=== PATIENT | male | born 1965 | race Caucasian/White ===

== ENCOUNTER 2020-06-15 07:46 | Outpatient (REF) | payer OTHER, SELFPAY ==
[2020-06-15 11:12] LABS: MANUAL DIFF FLAG NO
[2020-06-15 11:15] LABS: Basophils Percent Auto 0.3 % (0-2); Eosinophils Absolute Auto 0.2 X10*3/uL (0.0-0.4); Eosinophils Percent Auto 2.6 % (0-4); Hematocrit 45.1 % (42-52); Hemoglobin 15.3 g/dl (14.0-18.0); Imm Gran Abs Auto 0.02 X10*3/uL (0.00-0.03); Imm Gran Pct Auto 0.3 % (0.0-0.4); Lymphocytes Absolute Auto 1.7 X10*3/uL (1.2-4.9); Lymphocytes Percent Auto 24.7 % (20-40); Mean Corpuscular HGB Conc 33.9 g/dl (31.0-36.0); Mean Corpuscular Hemoglobin 30.9 pg (27.0-33.0); Mean Corpuscular Volume 91.1 fL (80-98); Mean Platelet Volume 10.9 fL (9.4-12.4); Monocytes Absolute Auto 0.6 X10*3/uL (0.1-1.2); Monocytes Percent Auto 9.3 % (2-11); Neutrophils Absolute Auto 4.3 X10*3/uL (2.0-8.3); Neutrophils Percent Auto 62.8 % (45-73); Platelet Count 305 X10*3/uL (160-400); Red Blood Count 4.95 X10*6/uL (4.60-5.80); Red Cell Distribution Width 12.9 % (11.0-16.0); White Blood Count 6.9 X10*3/uL (4.8-10.8)
[2020-06-15 11:38] LABS: Alanine Aminotransferase 21 U/L (0-40); Alkaline Phosphatase 69 U/L (39-117); Anion Gap 14 (12-20); Aspartate Amino Transferase 12 U/L (5-37); Bilirubin Total 0.4 mg/dL (0.0-1.0); Blood Urea Nitrogen 18 mg/dL (9-16); Calcium 8.6 mg/dL (8.4-10.2); Carbon Dioxide 25 mmol/L (22-29); Chloride 105 mmol/L (96-108); Cholesterol 238 mg/dL; Estimated Glomerular Filt Rate > 60; Glucose Fasting 90 mg/dL (60-99); HDL Cholesterol 50 mg/dL; LDL Cholesterol Calculated 158 mg/dl; Potassium 4.3 mmol/L (3.3-5.1); Sodium 140 mmol/L (135-145); Total Protein 6.5 g/dL (6.5-8.0); Triglycerides 150 mg/dL
[2020-06-15 11:59] LABS: ~HepC Num1 0.08 S/CO (0.00-0.79); ~Hepatitis C Antibody Nonreactive (Nonreactive)
[2020-06-15 12:00] LABS: Prostate Specific Antigen 0.74 ng/mL (<0.05-4.0); Thyroid Stimulating Hormone 1.62 uIU/mL (0.32-4.0); Vitamin D 25-OH Total 38.1 ng/mL (>30)
== END 2020-06-15 07:47 | disposition home or self-care (01) ==
LOC: HO.MANLDS 07:46
PROVIDERS: PCP Internal Medicine; Visit Provider Internal Medicine
DX: Z00.00 Encounter for general adult medical examination without abnormal findings (principal); Z12.5 Encounter for screening for malignant neoplasm of prostate
CPT/HCPCS: 36415; 80053; 80061; 82306; 84153; 84443; 85025; 86803

== ENCOUNTER 2022-07-04 07:40 | Outpatient (REF) | payer OTHER, SELFPAY ==
[2022-07-04 11:14] LABS: MANUAL DIFF FLAG NO
[2022-07-04 12:06] LABS: Basophils Percent Auto 0.4 % (0-2); Eosinophils Absolute Auto 0.3 X10*3/uL (0.0-0.4); Eosinophils Percent Auto 3.1 % (0-4); Hematocrit 46.6 % (42.0-52.0); Hemoglobin 15.5 g/dl (14.0-18.0); Imm Gran Abs Auto 0.02 X10*3/uL (0.00-0.03); Imm Gran Pct Auto 0.2 % (0.0-0.4); Lymphocytes Percent Auto 23.9 % (20-40); Mean Corpuscular HGB Conc 33.3 g/dl (31.0-36.0); Mean Corpuscular Hemoglobin 30.1 pg (27.0-33.0); Mean Corpuscular Volume 90.5 fL (80.0-98.0); Monocytes Percent Auto 12.1 % (2-11); Neutrophils Percent Auto 60.3 % (45-73); Platelet Count 298 X10*3/uL (160-400); Red Blood Count 5.15 X10*6/uL (4.60-5.80); White Blood Count 8.3 X10*3/uL (4.8-10.8)
[2022-07-04 12:40] LABS: Alanine Aminotransferase 32 U/L (0-40); Albumin Level 4.1 g/dL (3.5-5.0); Alkaline Phosphatase 74 U/L (39-117); Anion Gap 15 (12-20); Aspartate Amino Transferase 15 U/L (5-37); Bilirubin Total 0.6 mg/dL (0.0-1.0); Blood Urea Nitrogen 19 mg/dL (9-16); Calcium 9.1 mg/dL (8.4-10.2); Carbon Dioxide 28 mmol/L (22-29); Chloride 103 mmol/L (96-108); Cholesterol 217 mg/dL; Estimated Glomerular Filt Rate > 60; Glucose Random 90 mg/dL (60-115); HDL Cholesterol 42 mg/dL; LDL Cholesterol Calculated 138 mg/dl; Potassium 4.6 mmol/L (3.3-5.1); Sodium 141 mmol/L (135-145); Total Protein 6.4 g/dL (6.5-8.0); Triglycerides 189 mg/dL
[2022-07-04 12:41] LABS: Prostate Specific Antigen 0.65 ng/mL (<0.05-4.0); Thyroid Stimulating Hormone 1.97 uIU/mL (0.32-4.0); Vitamin D 25-OH Total 44.2 ng/mL (>30)
== END 2022-07-04 07:41 | disposition home or self-care (01) ==
LOC: HO.MANLDS 07:40
PROVIDERS: Visit Provider Internal Medicine
DX: Z00.00 Encounter for general adult medical examination without abnormal findings (principal); Z12.5 Encounter for screening for malignant neoplasm of prostate; E78.00 Pure hypercholesterolemia, unspecified; R53.83 Other fatigue
CPT/HCPCS: 36415; 80053; 80061; 82306; 84153; 84443; 85025

== ENCOUNTER 2024-06-21 16:23 | Outpatient (REF) | payer OTHER, SELFPAY ==
--- OUTSIDE RECORDS SUMMARY | 2024-06-21 18:50 | XMS_ITS | Continuity of Care Document ---
Author Organization [place] - [facility], [facility] Address [address] [place] [address] [place] [address] Assessment No assessment recorded. Plan of Treatment Reminders Order Date Submit Date Provider Last Modified By Organization Details Last Modified Time Details Appointments FOLLOW UP 15 2024 04:00P M DR MENDOZA Not available Not available Not available Lab testoste jaquelin, total, serum 2024 025 [facility], [address] [place] [address], [place], [address], 06/21/2024 16:40:33 Referral None recorded . Procedures None recorded . Surgeries None recorded . Imaging XR, chest, 2 view 2024 025 [facility] Central Scheduling (Not Breast), [address] [place] [address], [id number], 06/21/2024 17:57:15 Medication Orders None recorded . Patient TargetsNo targets recorded. Patient Instructions Encounter Date Encounter Id Patient Instructions Last Modified By Organization Details Last Modified Time 06/21/2024 [id number] cough: care instructions Not available 06/21/2024 16:20:32 methacholine challenge* ATHENAFAX Not available 06/21/2024 16:21:41 complete PFT w/ post bronchodilator spirometry* ATHENAFAX Not available 06/21/2024 16:21:39 pulse oximetry* Not available 06/21/2024 16:20:32 Reason for Referral None Reported. Results Created Date Observation Date Name Description Value Unit Range Abnormal Flag Note LastModifiedBy Organization Detail LastModifiedTime 06/22/19 25 06/21/2024 XR, chest , 2 view No observ ation record ed. [facility] [address], [place], [address], 06/21/2024 17:57:15 Result Notes None recorded. Problems Name Problem SNOMED Code Status Onset Date Resolution Date Notes Provider Name and Address Organization Details Recorded Time Sciatica 93309363 Active 2020 Not Available [facility] 4 03:25:31 Adult health examinati on Active 2020 Not Available [facility] 4 03:25:31 Acute low back pain 153695493 Active 2021 Not Available [facility] 4 03:25:31 Cervical radiculop athy 77208137 Active 2021 Not Available [facility] 4 03:25:31 Degenerat ion of cervical intervert ebral disc 18823978 Active 2022 Not Available [facility] 4 03:25:31 Cough 49430190 Active 2022 Not Available [facility] 4 03:25:31 Chronic cough 68807485 Active 2022 Not Available [facility] 4 03:25:31 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 Active 2022 Not Available [facility] 4 03:25:31 Reactive lymphaden opathy 509765378 Active 2022 Not Available [facility] 4 03:25:31 Chronic obstructi ve pulmonary disease 83341021 Active 2022 Not Available [facility] 4 03:25:31 Chronic sinusitis 05358959 Active 2023 LUCÍA DOAN [address] [place], [address], [facility] 4 12:07:23 Seasonal allergic rhinitis 052998879 Active 2023 LUCÍA DOAN [address] [place], [address], [facility] 4 12:09:14 Sleep apnea 99573670 Active 2023 LUCÍA DOAN [address] [place] [address], [phone], [facility] 4 12:13:37 Diastasis recti 39910013 Active 2023 LUCÍA DOAN [address] [place] [address], [phone], [facility] 4 12:22:47 Low back pain 256608001 Active 2023 LUCÍA DOAN [address] [place] [address], [phone], [facility] 4 12:24:52 Deviated nasal septum 824457970 Active 2023 LUCÍA DOAN [address] [place] [address], [phone], [facility] 4 12:33:11 Malaise and fatigue 937585695 Active 2023 Timothy Mendoza DO [address] [place] [address], [address], [facility] 4 10:52:13 Multiple joint pain 57373330 Active 2023 Timothy Mendoza DO [address] [place] [address], [address], [facility] 4 10:52:49 Insomnia 091626987 Active 2023 Timothy Mendoza DO [address] [place] [address], [phone], [facility] 4 10:56:02 Fatigue 38200610 Active 2024 Timothy Mendoza DO [address] [place] [address], [phone], [facility] 5 16:35:14 Notes:allergies ( immune Inj ections) Some problems listed in Documents: #[id number], #[id number] could not be added to this patient's chart. Please review these documents and add these problems to the patient's chart manually as needed. Problem Notes None recorded. Medical Equipment None Reported. Allergies No known drug allergies Medications Name Sig Start Date Stop Date Status Note LastModified by Organization Details LastModified Time prednison e 10 mg tablet 5 tabs x 3 days4 tabs x 3 days 3 tabs x 3 days2 tabs x 3 days1 tab x 3 days 03/22 completed Not Available Not Available Not Available trazodone 50 mg tablet Take 1 tablet every day by oral route for 30 days. active Not Available Not Available No t Available azithromy jamshid 250 mg tablet TAKE 2 TABLETS (500 MG) BY ORAL ROUTE ONCE DAILY FOR 1 DAY THEN 1 TABLET (250 MG) BY ORAL ROUTE ONCE DAILY FOR 4 DAYS 06/21 completed Not Available Not Available Not Available benzonata te 200 mg capsule TAKE 1 CAPSULE BY MOUTH THREE TIMES DAILY FOR 7 DAYS NEEDED active Not Available Not Available No t Available tramadol 50 mg tablet TAKE 1 TABLET BY MOUTH EVERY 6 HOURS FOR 7 DAYS NEEDED 03/22 completed Not Available Not Available Not Available baclofen 20 mg tablet TAKE 1 TABLET BY MOUTH THREE TIMES DAILY FOR 14 DAYS NEEDED 03/22 completed Not Available Not Available Not Available oseltamiv ir 75 mg capsule TAKE 1 CAPSULE BY MOUTH TWICE DAILY FOR 5 DAYS 06/21 completed Not Available Not Available Not Available methylpre dnisolone 4 mg tablets in a dose pack FOLLOW PACKAGE DIRECTIO NS 06/21 completed Not Available Not Available Not Available albuterol sulfate HFA 90 mcg/actua tion aerosol inhaler INHALE 2 PUFFS BY MOUTH EVERY 4 HOURS active Not Available Not Available No t Available doxycycli ne hyclate 100 mg tablet Take 1 tablet twice a day by oral route for 10 days. 03/25 completed Not Available Not Available Not Available Flovent HFA 110 mcg/actua tion aerosol inhaler INHALE 1 PUFF BY MOUTH TWICE DAILY 03/22 completed Not Available Not Available Not Available Vitamin D3 1000 IU daily active OTC Not Available Not Available No t Available Multivita min 50 Plus daily active OTC Not Available Not Available Not Available CoQ-10 200 mg daily active OTC Not Available Not Available No t Available krill oil 500 mg daily active OTC Not Available Not Available No t Available Ragwitek 12 Amb a 1 unit sublingua l tablet DISSOLVE 1 TABLET UNDER THE TONGUE DAILY active Not Available Not Available No t Available Ragwitek 03/25 completed PRN allergie s Not Available Not Available Not Available Trelegy Ellipta 100 mcg-62.5 mcg-25 mcg powder for inhalatio n Inhale 1 puff every day by inhalati on route as directed for 30 days. 03/22 completed Not Available Not Available Not Available Vitals Date Recorded Body height Body mass index (BMI) Body weight Heart rate Oxygen saturation Oxygen saturation in Arterial blood by Pulse oximetry Systolic blood pressure Diastolic blood pressure Provider Name and Address Organization Details Last Updated DateTime 5 167.64 cm 32.1 kg/m2 45308.8 g 86 /min 95 % 95 % 118 mm[Hg] 76 mm[Hg] Veronique Ramírez [facility] 5 15:59:05 Social History Question Answer Notes LastModified by Organizat ion Details LastModified Time Tobacco Smoking Status Never Smoker Kiertsen coleman [facility] 05/18/2020 10:30:22 What Was The Date Of Your Most Recent Tobacco Screening? 06/21/2024 [email or web address] Information not available 06/21/2024 Do You Or Have You Ever Used Any Other Forms Of Tobacco Or Nicotine? No [email or web address] Information not available 02/16/2023 Sex: Unknown Functional Status None recorded. Mental Status None recorded. Family History Nothing Reported. Medical History No medical history recorded. Immunizations Vaccine Type Date Status Note Provider Nam e and Address Organization Details Recorded Time COVID-19, mRNA, LNP-S, PF, 100 mcg/0.5mL dose or 50 mcg/0.25mL dose 1 completed Not Available [facility] 03/25/2023 03:25:31 COVID-19, mRNA, LNP-S, PF, 100 mcg/0.5mL dose or 50 mcg/0.25mL dose 1 completed Not Available [facility] 03/25/2023 03:25:31 COVID-19, mRNA, LNP-S, PF, 100 mcg/0.5mL dose or 50 mcg/0.25mL dose 1 completed Not Available [facility] 03/25/2023 03:25:31 Influenza, split virus, quadrivalent, preservative 1 completed Not Available [facility] 03/25/2023 03:25:31 zoster recombinant 2 completed Not Available [facility] 03/25/2023 03:25:31 influenza, unspecified formulation 2 completed Not Available [facility] 03/25/2023 03:25:31 Influenza, split virus, quadrivalent, preservative 0 completed Not Available [facility] 03/25/2023 03:25:31 Past Encounters Encounter ID Performer Location Encounter Start Date Encounter Closed Date Diagnosis/Indication Diagnosis SNOMED-CT Code Diagnosis ICD10 Code Diagnosis Note [id number] DO [facility] [address] [facility] [place] [address] 06/21/2024 15:50:39 06/21/2024 16:31:11 Chronic obstructive pulmonary disease 92973953 J44.9 Fatigue 62065807 R53.83 we will need to have him get another set of lab including testostero ne Cough 48171370 R05.9 Health Concerns Section Related Observation LastModified by Organization Detai ls LastModified Time None Recorded Concern Status LastModified by Organization Details LastModified Time None Recorded Payers Encounter Date Sequence Insurance Name Policy Number Policy Johnson Covered Member ID Johnson Member ID Guarantor Name 06/21/[address] [place] [address] [id number] Fletcher Reinoso [id number] Fletcher Reinoso Notes Date Note Type Note Provider Name a nd Address Organization Details Recorded Time 5 text/html Care Management - Chronic Obstructive Pulmonary Disease (COPD)Reported bypatient.Severity:s ymptoms are improving; does not interfere with daily activities Associated Symptoms:no chest tightness; no shortness of breath; no wheezing; not constantly clearing the throat; no blueness of the lips; no fatigue; no respiratory infectionsCare Management - GeneralReported bypatient.Context:no t current smoker Lifestyle Changes:motivated to continue lifestyle changes; current smoker wishing to stop; exercises regularly Medication Therapy:compliant with follow-up visits; compliance with oral medication is good; understands effect of concurrent medications; understands potential side effects; understands missed doses Nutrition/Dietary Compliance:ready for diet changes; eats mostly healthy diet; limiting salt intake; sufficient intake of fruits/vegetables; low fat diet; limiting alcohol intake; understands role of diet as primary therapy; hypoglycemic awarenessFatigueRepo rted bypatient.Severity:n ormal sleep patterns; normal exercise habits; normal activity; improving Timing:better Context:symptoms improve when at home versus on the job Modifying Factors:no new stressors in life; taking vitamins Associated Symptoms:no depression; no alcohol consumption; no anxiety; no sleep disturbances; normal sleep; no snoring; no apnea; no weight loss; no weight gain; no chest pain; no joint pain; no rash; palpitations; no SOB; no dizziness; no sore throat; no joint pain; no headache; no exertional fatigue; no tender, swollen glands; no fever relates that he came back from [facility] had a day of chills and has had a cough for the past month Timothy Mendoza, DO [address] [place], [address], [facility] 06/21/2024 16:23:16
--- OUTSIDE RECORDS SUMMARY | 2024-06-21 18:50 | XMS_ITS | Data Portability ---
Author Organization [facility], Home Service Address [address] [place] [address] Assessment Encounter Date Assessment Date Assessment LastModified by Organization Details LastModified Time 08/20/2022 08/20/2022 The patient denies little pleasure in activities they find enjoyable, feeling depressed, difficulties sleeping, feeling tired or having little energy, change in appetite, feeling guilty, overwhelmed or unmotivated. The patient denies suicidal ideation, thoughts of hurting themselves or others. Their mood is appropriate, they show good judgement and clear understanding of the conversation. They are orientated to time, place and person. They are not expressing any concerning thoughts or actions that would need further investigation and treatment for mental health. The patient denies little pleasure in activities they find enjoyable, feeling depressed, difficulties sleeping, feeling tired or having little energy, change in appetite, feeling guilty, overwhelmed or unmotivated. The patient denies suicidal ideation, thoughts of hurting themselves or others. Their mood is appropriate, they show good judgement and clear understanding of the conversation. They are orientated to time, place and person. They are not expressing any concerning thoughts or actions that would need further investigation and treatment for mental health. [email or web address] Not available 08/20/2022 11:34:22 Plan of Treatment Reminders Order Date Submit Date Provider Last Modified By Organization Details Last Modified Time Details Appointments FOLLOW UP 15 2024 04:00P M DR MENDOZA Not available Not available Not available Lab testoster one, total, serum 2024 025 [facility], [address] [place] [address], [place], [address], 06/21/2024 16:40:33 ESR (erythroc yte sedimenta tion rate), blood 2023 024 [facility], [address] [place] [address], [address], 03/22/2024 10:58:58 TSH, serum or plasma 2023 024 [facility], [address] [place] [address], [address], 04/22/2024 14:43:43 CBC w/ auto diff 2023 [facility], [address] [place] [address], [address], 04/22/2024 14:43:43 CMP, serum or plasma 2023 [facility], [address] [place] [address], [address], 04/22/2024 14:43:43 vitamin B12 + folate, serum or blood 2023 [facility], [address] [place] [address], [address], 03/22/2024 10:53:47 TSH + free T4, serum 2023 024 [facility], [address] [place] [address], [address], 03/22/2024 10:53:46 testoster one, total, serum 2023 [facility], [address] [place] [address], [address], 04/22/2024 14:43:43 vitamin D, 25-hydrox y, total, serum 2023 [facility], [address] [place] [address], [address], 03/22/2024 10:53:47 HbA1c (hemoglob in A1c), blood 2023 024 [facility], [address] [place] [address], [address], 04/22/2024 15:49:56 lipid panel, blood 2023 024 [facility], [address] [place] [address], [address], 04/22/2024 14:59:17 PSA, serum or plasma 2023 024 [facility], [address] [place] [address], [address], 04/22/2024 15:08:32 CBC w/ auto diff 2022 023 [facility], [address] [place] [address], [address], 02/17/2023 17:16:16 ESR (erythroc yte sedimenta tion rate), blood 2022 023 [facility], [address] [place] [address], [address], 02/17/2023 17:16:15 C reactive protein, QN, serum or plasma 2022 023 [facility], [address] [place] [address], [address], 02/17/2023 17:16:15 CMP, serum or plasma 2022 023 [facility], [address] [place] [address], [address], 02/17/2023 17:16:15 Referral sleep medicine referral 2023 024 [email or web address] [facility], [address] [place] [address], [address], 09/15/2023 07:51:29 physical therapist referral 2023 024 [facility], [address] [facility], [facility] [address], [address], 09/15/2023 09:14:48 Procedures None recorded. Surgeries None recorded. Imaging XR, chest, 2 view 2024 025 [facility] Central Scheduling (Not Breast), [address] [place], [address], 06/21/2024 17:57:15 XR, nasal bones, 3 or more view 2023 024 [facility], [address], [place], [address], 03/29/2024 08:37:15 XR, sinuses, paranasal , 3 or more view 2023 024 [facility], [address], [address], 09/21/2023 08:19:54 exercise stress test 2022 023 [email or web address] Not available 03/02/2023 09:28:17 CT, chest, w/o contrast 2022 023 [facility], [address] [place], [address], 02/17/2023 09:27:48 XR, chest, 2 view 2022 023 [facility], [address] [place], [address], 02/16/2023 14:27:36 CT, chest, w/o contrast 2022 023 [email or web address] Not available 08/22/2022 08:36:39 Medication Orders trazodone 50 mg tablet 2023 024 [id number], [address] [place], [place], [id number], 03/22/2024 10:56:42 tramadol 50 mg tablet [address] [facility]64595, [address] [place], [place], [id number], 03/22/2024 10:20:50 baclofen 20 mg tablet 2023 024 [facility]64697, [address] [place], [place], [id number], 03/22/2024 10:21:26 Ragwitek 12 Amb a 1 unit sublingua l tablet 2023 024 [facility] #77788, [address] [place], [place], [id number], 09/14/2023 12:10:50 prednison e 10 mg tablet [address] [facility]62831, [address] [place], [place], [id number], 03/22/2024 10:20:45 albuterol sulfate HFA 90 mcg/actua tion aerosol inhaler 2022 023 [facility] #22222, [address] [place], [place], [id number], 02/16/2023 11:32:23 Flovent HFA 110 mcg/actua tion aerosol inhaler [address] [facility] #31574, [address] [place], [place], [id number], 03/22/2024 10:21:23 Patient TargetsNo targets recorded. Patient Instructions Encounter Date Encounter Id Patient Instructions Last Modified By Organization Details Last Modified Time 03/22/2024 [id number] nasal septum repair: before your surgery Not available 03/22/2024 10:57:53 insomnia: care instructions Not available 03/22/2024 10:56:31 fatigue: care instructions Not available 03/22/2024 10:52:22 06/21/2024 [id number] cough: care instructions Not available 06/21/2024 16:20:32 methacholine challenge* ATHENAFAX Not available 06/21/2024 16:21:41 complete PFT w/ post bronchodilator spirometry* ATHENAFAX Not available 06/21/2024 16:21:39 pulse oximetry* Not available 06/21/2024 16:20:32 Reason for Referral Sleep Medicine Referral for Sleep apnea needs in patient sleep study Referring Physician: Sowmya Natarajan, Internal Medicine, Encounter Date: 09/14/2023 Physical Therapist Referral for Diastasis recti diastasis recti with low back pain Referring Physician: Sowmya Natarajan Internal [facility], Encounter Date: 09/14/2023 Results Created Date Observation Date Name Description Value Unit Range Abnormal Flag Note LastModifiedBy Organization Detail LastModifiedTime 08/16/19 23 08/15/2022 XR, chest , 2 view No observ ation record ed. [facility] [address] [facility] [address], [place], [address], 08/15/2022 16:01:41 02/17/20 23 02/16/2023 XR, chest , 2 view No observ ation record ed. [email or web address] [place] [address] [facility] [address] [place], [address], 02/16/2023 15:04:23 02/26/20 23 02/25/2023 CT, chest , w/o contr ast No observ ation record ed. [facility] [address] [place], [address], 02/27/2023 10:18:33 03/26/19 24 03/26/2023 exerc ise stres s test No observ ation record ed. [email or web address] [place] [address] [facility] [address], [place], [address], 03/27/2023 12:00:04 06/22/19 25 06/21/2024 XR, chest , 2 view No observ ation record ed. [facility] [address] [place], [address], 06/21/2024 17:57:15 Result Notes None recorded. Problems Name Problem SNOMED Code Status Onset Date Resolution Date Notes Provider Name and Address Organization Details Recorded Time Sciatica 20860990 Active 2020 Not Available [facility] 4 03:25:31 Adult health examinati on Active 2020 Not Available [facility] 4 03:25:31 Acute low back pain 839860628 Active 2021 Not Available [facility] 4 03:25:31 Cervical radiculop athy 90085196 Active 2021 Not Available [facility] 4 03:25:31 Degenerat ion of cervical intervert ebral disc 34934331 Active 2022 Not Available [facility] 4 03:25:31 Cough 68559079 Active 2022 Not Available [facility] 4 03:25:31 Chronic cough 45422596 Active 2022 Not Available [facility] 4 03:25:31 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 1325664476 Active 2022 Not Available [facility] 4 03:25:31 Reactive lymphaden opathy 569041314 Active 2022 Not Available [facility] 4 03:25:31 Chronic obstructi ve pulmonary disease 94851786 Active 2022 Not Available [facility] 4 03:25:31 Chronic sinusitis 87929073 Active 2023 LUCÍA DOAN [address] [place], [address], [facility] 4 12:07:23 Seasonal allergic rhinitis 203411657 Active 2023 LUCÍA DOAN [address] [place] [address], [address], [facility] 4 12:09:14 Sleep apnea 02833524 Active 2023 LUCÍA DOAN [address] [place], [address], [facility] 4 12:13:37 Diastasis recti 40138562 Active 2023 LUCÍA DOAN [address] [place] [address], [address], [facility] 4 12:22:47 Low back pain 525801885 Active 2023 LUCÍA DOAN [address] [place] [address], [address], [facility] 4 12:24:52 Deviated nasal septum 448967101 Active 2023 LUCÍA DOAN [address] [place] [address], [address], [facility] 4 12:33:11 Malaise and fatigue 350812109 Active 2023 Timothy Mendoza DO [address] [place] [address], [address], [facility] 4 10:52:13 Multiple joint pain 61512238 Active 2023 Timothy Mendoza DO [address] [place] [address], [address], [facility] 4 10:52:49 Insomnia 280710535 Active 2023 Timothy Mendoza DO [address] [place] [address], [address], [facility] 4 10:56:02 Fatigue 41639052 Active 2024 Timothy Mendoza DO [address] [place] [address], [address], [facility] 5 16:35:14 Notes:allergies ( immune Inj ections) Some problems listed in Documents: #[id number], #[id number] could not be added to this patient's chart. Please review these documents and add these problems to the patient's chart manually as needed. Problem Notes None recorded. Procedures Surgical History None recorded. Imaging Results Imaging Date Name Status LastModified by Organiz ation Details LastModified Time 08/15/2022 XR, chest, 2 view completed [facility] [address] [facility] [address], [place], [address], 08/15/2022 16:01:41 02/16/2023 XR, chest, [address] [facility] [address] [place], [address], 02/16/2023 15:04:23 02/25/2023 CT, chest, w/o contrast completed [facility] [address], [address], 02/27/2023 10:18:33 03/26/2023 exercise stress test completed [address] [facility] [address] [place], [address], 03/27/2023 12:00:04 06/21/2024 XR, chest, 2 view active [facility] [address] [place], [address], 06/21/2024 17:57:15 Procedure Notes None recorded. Medical Equipment None Reported. [...] and Address Organization Details Last Updated DateTime 3 170.18 cm 30.9 kg/m2 01425.7 g 80 /min 97 % 97 % 122 mm[Hg] 78 mm[Hg] Ethel Chopra [facility] 3 11:04:11 Date Recorded Body height Body mass index (BMI) Body weight Heart rate Oxygen saturation Oxygen saturation in Arterial blood by Pulse oximetry Systolic blood pressure Diastolic blood pressure Provider Name and Address Organization Details Last Updated DateTime 4 170.18 cm 30.4 kg/m2 02804.9 2 g 75 /min 97 % 97 % 108 mm[Hg] 60 mm[Hg] Ethel Chopra [facility] 4 11:50:17 Date Recorded Body height Body mass index (BMI) Body weight Heart rate Oxygen saturation Oxygen saturation in Arterial blood by Pulse oximetry Systolic blood pressure Diastolic blood pressure Provider Name and Address Organization Details Last Updated DateTime 4 167.64 cm 32.8 kg/m2 89335.2 5 g 68 /min 99 % 99 % 114 mm[Hg] 72 mm[Hg] Ben Hooker [facility] 4 10:23:20 Date Recorded Body height Body mass index (BMI) Body weight Heart rate Oxygen saturation Oxygen saturation in Arterial blood by Pulse oximetry Systolic blood pressure Diastolic blood pressure Provider Name and Address Organization Details Last Updated DateTime 5 167.64 cm 32.1 kg/m2 19069.8 g 86 /min 95 % 95 % 118 mm[Hg] 76 mm[Hg] Veronique Ramírez [facility] 5 15:59:05 Social History Question Answer Notes LastModified by Organizat ion Details LastModified Time Tobacco Smoking Status Never Smoker Kiersten coleman [facility] 05/18/2020 10:30:22 What Was The Date Of Your Most Recent Tobacco Screening? 06/21/2024 [email or web address] Information not available 06/21/2024 Do You Or Have You Ever Used Any Other Forms Of Tobacco Or Nicotine? No [email or web address] Information not available 02/16/2023 Sex: Unknown Functional Status None recorded. Mental Status None recorded. Family History Nothing Reported. Medical History No medical history recorded. Immunizations Vaccine Type Date Status Note Provider Nam e and Address Organization Details Recorded Time COVID-19, mRNA, LNP-S, PF, 100 mcg/0.5mL dose or 50 mcg/0.25mL dose 1 completed Not Available [facility] 03/25/2023 03:25:31 COVID-19, mRNA, LNP-S, PF, 100 mcg/0.5mL dose or 50 mcg/0.25mL dose 1 completed Not Available [facility] 03/25/2023 03:25:31 COVID-19, mRNA, LNP-S, PF, 100 mcg/0.5mL dose or 50 mcg/0.25mL dose 1 completed Not Available [facility] 03/25/2023 03:25:31 Influenza, split virus, quadrivalent, preservative 1 completed Not Available [facility] 03/25/2023 03:25:31 zoster recombinant 2 completed Not Available [facility] 03/25/2023 03:25:31 influenza, unspecified formulation 2 completed Not Available [facility] 03/25/2023 03:25:31 Influenza, split virus, quadrivalent, preservative 0 completed Not Available [facility] 03/25/2023 03:25:31 Past Encounters Encounter ID Performer Location Encounter Start Date Encounter Closed Date Diagnosis/Indication Diagnosis SNOMED-CT Code Diagnosis ICD10 Code Diagnosis Note [id number] LUCÍA DOAN [facility] [address] [facility], [place] [address] 05/18/2020 10:01:51 05/18/2020 11:16:28 Acute low back pain 530168563 M54.5 will start work up on low back patient has had work up prior but with new symptoms and numbness, he will need new imaging if he decides to go see a specialist [id number] Timothy Mendoza DO [facility] [address] [facility], [place] [address] 06/04/2020 10:59:37 06/04/2020 12:05:32 Active or passive immunization 432085628 Z23 this is to be ordered Adult heal th examination 297680506 Z00.00 back is still al problem [facility] consult was a joke still having issues although it is getting better Sleep apnea 42391916 G47 .30 [id number] LUCÍA DOAN [facility] [address] [facility] [address],[place] [address] 12/20/2021 11:40:25 12/20/2021 16:32:32 Cervical radiculopathy 76852219 M54.12 will start on prednisone which has worked before in the past [id number] Timothy Mendoza, [facility] [address] [facility] [address] [address] 03/25/2022 14:06:40 03/25/2022 16:34:20 Active or passive immunization 272580018 Z23 this is to be ordered Adult heal th examination 249147317 Z00.00 doing quite welldiscus roxanne re labct heartcovid etc Degenerati on of cervical intervertebral disc 03013954 M50.30 [id number] LUCÍA DOAN [facility] [address] [facility] [address] [address] 08/20/2022 09:52:15 08/20/2022 14:59:12 Chronic cough 85253110 R05.3 XR negativeno effect with multiple different treatments has been ongoing now for about two mos [id number] LUCÍA DOAN [facility] [address] [facility] [address] [address] 02/16/2023 10:58:46 02/16/2023 11:43:34 Cough 48296956 R05.1 agreed to CXR Post-acute COVID-19 1119 554627 U09.9 will set up lab work as well Reactive lymphadenopathy 482091573 R59.1 could just be bronchitis post COVID Chronic cough 08298001 R 05.[address] Family his tory of Cardiovascular disease 187558502 Z82.49 will set up with stress test for routine testing [id number] LUCÍA DOAN [facility] [address] [facility] [address],[place] [address] 09/14/2023 11:41:24 09/14/2023 13:59:59 Depression screening 321437108 Z13.31 0 negative Chronic sinusitis 224460 00 J32.1 will set up XR sinuses to see if he has a deviated sp Seasonal a llergic rhinitis 935870296 J30.2 will set up with SL tablet Sleep apnea 90113113 G47 .33 agreed to in facility sleep study Diastasis recti 39448477 M62.08 will set up with PT Low back pain 089143891 M54.51 will set up with tramadol and MSK relaxer Deviated nasal septum 12 1047131 J34.2 will set up with XRs [id number] [facility] [address] [facility], [place] [address] 03/22/2024 10:17:06 03/22/2024 11:05:34 Active or passive immunization 655845463 Z23 this is to be ordered Adult [facility] th examination 893701777 Z00.01 has been very fatiguedis cussed re sleep apneadiscu ssion re labct heartcovid etc Malaise and fatigue 2717 11543 R53.83 Multiple joint pain 3567 8005 M25.50 Insomnia 959747598 G47.0 0 Deviated nasal septum 12 4630569 J34.2 [id number] [facility] [address] [facility], [employer] [place] [address] 06/21/2024 15:50:39 06/21/2024 16:31:11 Chronic obstructive pulmonary disease 92083681 J44.9 Fatigue 23641019 R53.83 we will need to have him get another set of lab including testostero ne Cough 53520885 R05.9 Health Concerns Section Related Observation LastModified by Organization Detai ls LastModified Time None Recorded Concern Status LastModified by Organization Details LastModified Time None Recorded Advance Directives Directive None Recorded Payers Encounter Date Sequence Insurance Name Policy Number Policy Johnson Covered Member ID Johnson Member ID Guarantor Name 08/20/2022 1 [facility] [id number] Fletcher Reinoso [id number] Fletcher Reinoso 02/16/2023 1 [facility] [id number] Fletcher Shabazzard [id number] Fletcher Shabazzard 09/14/2023 1 [facility] [id number] Fletcher Monteroouard [id number] Fletcher Shabazzard 03/22/2024 1 [facility] [id number] Fletcher Monteroouard [id number] Fletcher Shabazzard 06/21/2024 1 [facility] [id number] Fletcher Shabazzard [id number] Fletcher Reinoso Notes Date Note Type Note Provider Name a nd Address Organization Details Recorded Time 3 text/html c/o chronic cough tele-med phone callpt consents to phone call continued cough due to unknown reason from [place] severe [place] several different medications to treat it without success XR was normalagreed to CT for further evalmight also need PFT but will start with the PFT LUCÍA DOAN [address] [place], [address], [facility] [place] [facility] 08/20/2022 11:42:40 3 text/html c/o cough and congestion after COVID the patient had COVID-19 on 01/29, tested positive until 02/10had mild cold symptoms then resolvedthe patient was seen back in 08/20/22 for a chronic cough, ordered CT but he never got it because he started feeling better the patient has a consistent cough, the patient goes been dry and productivehas coughing fits, his breathing is less than his usual, more sob with activity facial pressurethe patient reports that when he was laying down no coughingdoes only have it during the day when he is moving aroundno chest pain like cardiac relatedno jaw pain, no left arm pain sleeps okay no issues, he does not cough at night when he sleeps some throat painno ear painno sure if he has post nasal drip agreed to CXR and lab workcould be just a post COVID-19 pneumonia/bronchitis LUCÍA DOAN [address] [facility], [place], [address], [facility] [place] [facility] 02/16/2023 11:32:56 4 text/html c/o sleep apnea, low back pain sleeping issues, hx of poor sleep [facility] part of his issues is his sinuses, can't breath through his nose wellprob had deviated septum, could be most of his issue if he then tries to breath through his nose and the tongue falls backwards and blocks his airset up with in facility sleep test and fu with sinus XR to check bone structure has diastasis rectisuggested PT first then fu with gen surg if no improvement for a repair some back pain will thiswill give meds for the discomfort at this time will fu after the imaging LUCÍA DOAN [address] [place], [address], [facility] [place] [facility] 09/14/2023 12:39:03 4 text/html Annual WellnessReported bypatient.Diet and Nutrition:healthy diet Fracture Risk:no history of fractures; no recent explained fracture; no sudden unexplained fractures; no previous musculoskeletal injuries Physical Activity:exercises on a regular basis; recent increase in physical activity; good physical condition Additional Lifestyle Factors:no tobacco use; no alcohol intake; stopped drinking alcohol Depression Risk:never feels sad, empty, or tearful; no loss of interest in activities; no significant changes in weight; no sleep disturbances or insomnia; no agitation; no loss of energy; no feelings of worthlessness or guilt; no thoughts of suicide; no history of depression; no history of mood disorders Hearing:no loss of hearing Vision:no vision problems Timothy Mendoza DO [address] [place], [address], [facility] [place] [facility] 03/22/2024 11:02:25 5 text/html Care Management - Chronic Obstructive Pulmonary Disease (COPD)Reported bypatient.Severity:sy mptoms are improving; does not interfere with daily activities Associated Symptoms:no chest tightness; no shortness of breath; no wheezing; not constantly clearing the throat; no blueness of the lips; no fatigue; no respiratory infectionsCare Management - GeneralReported bypatient.Context:not current smoker Lifestyle Changes:motivated to continue lifestyle [...] role of diet as primary therapy; hypoglycemic awarenessFatigueRepor radha bypatient.Severity:no rmal sleep patterns; normal exercise habits; normal activity; [...] fever relates that he came back from [facility] had a day of chills and has had a cough for the past month Timothy Mendoza, DO [address] [place], [id number], [facility] 06/21/2024 16:23:16
[2024-06-25 10:53] LABS: Testosterone, Total 269 ng/dL (250-1100)
== END 2024-06-21 16:24 | disposition home or self-care (01) ==
LOC: HO.MANLDS 16:23
PROVIDERS: Visit Provider Internal Medicine
DX: R53.83 Other fatigue (principal)
CPT/HCPCS: 36415; 84403